=== PATIENT | male | born 2005 | race Caucasian/White ===

== ENCOUNTER 2024-05-08 19:04 | Emergency (ER) | payer OTHER ==
[2024-05-08] MEDS ORDERED: ACETAMINOPHEN 325 MG TABLET ONE (19:45)
[2024-05-08] MEDS ORDERED: NA CHLORIDE 0.9% 1,000 ML ONE (19:46)
[2024-05-08 20:18] LABS: Absolute Lymphocytes (CBC) 0.6 K/uL (0.7-4.9); Absolute Monocytes 0.9 K/uL (0.1-1.3); Absolute Neutrophil 7.6 K/uL (1.8-8.0); Basophils % 0.2 % (0-1.3); Eosinophils % 0.2 % (0-4.4); Hematocrit 44.1 % (39.6-49.0); Hemoglobin 15.4 g/dL (13.6-17.9); Lymphocytes % 6.9 % (15.3-44.8); MCH 29.9 pg (27.0-35.0); MCHC 34.8 g/dL (32.0-36.0); MCV 85.9 fL (80-100); MPV 7.2 fL (7.6-11.3); Monocytes % 9.4 % (3.3-12.3); Neutrophils % 83.3 % (41.7-73.7); Platelets 172 thou/uL (152-406); RBC Red Blood Cell Count 5.13 M/uL (4.33-5.43); Red Cell Distribution Width 13.6 % (12.1-15.2)
[2024-05-08 20:32] LABS: Specific Gravity 1.009 (1.005-1.030); Sqamous Epithelial None Seen /HPF (None Seen); Urine Bacteria None Seen /HPF (<20); Urine Bilirubin NEGATIVE (Negative); Urine Blood Negative (Negative); Urine Clarity Clear (Clear); Urine Color Colorless (Yellow); Urine Culture Reflex Order NOT NEEDED; Urine Glucose NEGATIVE (Negative); Urine Ketones NEGATIVE (Negative); Urine Microscopic Reflex YN ORDER UMIC; Urine Nitrite NEGATIVE (Negative); Urine Protein NEGATIVE (Negative); Urine RBC <5 /HPF (None Seen); Urine Urobilinogen Normal (Normal); Urine WBC <5 /HPF (<5)
--- NOTE | 2024-05-08 20:36 | RAD REPORT ---
EXAMINATION: TWO VIEW CHEST XR CLINICAL INDICATION: COUGH TECHNIQUE: 2 views of the chest was performed. COMPARISON: No prior exam. FINDINGS: The lungs are well inflated and clear. The heart is normal in size. No displaced fractures evident. IMPRESSION: No acute or significant abnormalities.
[2024-05-08 20:38] LABS: Albumin 4.4 g/dL (3.4-5.0); Albumin/Globulin Ratio 1.4 (1.1-1.8); Bilirubin Total 2.3 mg/dL (0.2-1.0); Globulin 3.1 g/dL (2.3-3.5); Protein, Total 7.5 g/dL (6.4-8.2)
[2024-05-08 20:45] LABS: SARS-CoV-2 Antigen CONTROL BLUE LINE VIS/BG OK; SARS-CoV-2 Antigen Rapid Res Negative (Negative)
--- NOTE | 2024-05-08 21:00 | EDPHYS ---
Physician Documentation [facility] Name: Torres Capone Age: 18 yrs Sex: Male : 2005 Arrival Date: 05/08/2024 Time: 19:04 Bed 14 Private MD: ED Physician Romulo Berumen HPI: 05/08 20:08 This 18 yrs old Male presents to ER via Ambulatory with complaints of arturo Allergic Reaction. 20:08 This 18 yrs old Male presents to ER via Ambulatory with complaints of Allergic Reaction.arturo 20:08 The patient presents with dizziness, redness of skin. Onset: The symptoms/episode arturo began/occurred just prior to arrival. Associated signs and symptoms: Pertinent positives: nausea. Possible causes: Rizatriptan. At home the patient or guardian has treated the symptoms with nothing. Severity of symptoms: At their worst the symptoms were moderate in the emergency department the symptoms have improved moderately. The patient has experienced a previous episode. Historical: - Allergies: 19:30 sumatriptan; cp4 19:30 rizatriptan; cp4 - Immunization history:: Adult Immunizations up to date. - Infectious Disease History:: Denies. - Social history:: Smoking status: Patient denies any tobacco usage or history of. - Family history:: not pertinent. ROS: 20:08 Constitutional: Negative for fever, chills, and weight loss, Eyes: Negative for injury, arturo pain, redness, and discharge, ENT: Negative for injury, pain, and discharge, Neck: Negative for injury, pain, and swelling, Respiratory: Negative for shortness of breath, cough, wheezing, and pleuritic chest pain, Abdomen/GI: Negative for abdominal pain, nausea, vomiting, diarrhea, and constipation, Back: Negative for injury and pain, : Negative for injury, bleeding, discharge, and swelling, MS/Extremity: Negative for injury and deformity, Neuro: Negative for headache, weakness, numbness, tingling, and seizure, Psych: Negative for depression, anxiety, suicide ideation, homicidal ideation, and hallucinations, Allergy/Immunology: Negative for hives, rash, and allergies, Endocrine: Negative for neck swelling, polydipsia, polyuria, polyphagia, and marked weight changes, 20:08 Cardiovascular: Positive for palpitations, 20:08 Skin: Positive for Exam: 20:08 Constitutional: This is a well developed, well nourished patient who is awake, alert, arturo and in no acute distress. Head/Face: Normocephalic, atraumatic. Eyes: Pupils equal round and reactive to light, extra-ocular motions intact. Lids and lashes normal. Conjunctiva and sclera are non-icteric and not injected. Cornea within normal limits. Periorbital areas with no swelling, redness, or edema. ENT: Nares patent. No nasal discharge, no septal abnormalities noted. Tympanic membranes are normal and external auditory canals are clear. Oropharynx with no redness, swelling, or masses, exudates, or evidence of obstruction, uvula midline. Mucous membranes moist. Neck: Trachea midline, no thyromegaly or masses palpated, and no cervical lymphadenopathy. Supple, full range of motion without nuchal rigidity, or vertebral point tenderness. No Meningismus. Chest/axilla: Normal chest wall appearance and motion. Nontender with no deformity. No lesions are appreciated. Cardiovascular: Regular rate and rhythm with a normal S1 and S2. No gallops, murmurs, or rubs. Normal PMI, no JVD. No pulse deficits. Respiratory: Lungs have equal breath sounds bilaterally, clear to auscultation and percussion. No rales, rhonchi or wheezes noted. No increased work of breathing, no retractions or nasal flaring. Abdomen/GI: Soft, non-tender, with normal bowel sounds. No distension or tympany. No guarding or rebound. No evidence of tenderness throughout. Back: No spinal tenderness. No costovertebral tenderness. Full range of motion. Male : Normal genitalia with no discharge or lesions. Skin: Warm, dry with normal turgor. Normal color with no rashes, no lesions, and no evidence of cellulitis. MS/ Extremity: Pulses equal, no cyanosis. Neurovascular intact. Full, normal range of motion. Neuro: Awake and alert, GCS 15, oriented to person, place, time, and situation. Cranial nerves II-XII grossly intact. Motor strength 5/5 in all extremities. Sensory grossly intact. Cerebellar exam normal. Normal gait. Psych: Awake, alert, with orientation to person, place and time. Behavior, mood, and affect are within normal limits. Vital Signs: 19:27 BP 138 / 74; Pulse 108; Resp 18; Temp 99.4; Pulse Ox 100% ; Weight 61.23 kg; Height 5 cp4 ft. 10 in. ; Pain 0/10; 19:37 BP 138 / 74; Pulse 113; Resp 20; Temp 98; Pulse Ox 100% ; kj2 20:22 BP 126 / 74; Pulse 100; Resp 18; Pulse Ox 100% on R/A; kj2 21:17 BP 112 / 60; Pulse 105; Resp 18; Temp 98; Pulse Ox 100% on R/A; kj2 19:27 Body Mass Index 19.37 (61.23 kg, 177.8 cm) cp4 19:27 Pain Scale: Adult cp4 MDM: 19:08 Patient medically screened. [facility] 20:11 Differential diagnosis: anaphylaxis, angioedema, Arrhythmias urticaria. Data reviewed: [facility] vital signs, nurses notes, lab test result(s), EKG, radiologic studies, plain films. Consideration of Admission/Observation Escalation of care including admission/observation considered. I considered the following discharge prescriptions or medication management in the emergency department Medications were administered in the Emergency Department. See MAR. Independent interpretation of the following test(s) in the Emergency Department EKG: See my EKG interpretation above. Test considered but Not performed: EKG: no ekg. Historians other than the Patient: pt well informed. Care significantly affected by the following chronic conditions: headaches. 05/08 19:35 Order name: CBC with Diff; Complete Time: 20:58 [facility] 05/08 19:35 Order name: Comprehensive Metabolic Panel; Complete Time: 20:58 [facility] 05/08 19:35 Order name: Urinalysis w/ reflexes; Complete Time: 20:58 [facility] 05/08 19:35 Order name: Flu; Complete Time: 20:58 [facility] 05/08 19:35 Order name: SARS RAPID; Complete Time: 20:58 [facility] 05/08 19:35 Order name: Strep; Complete Time: 20:58 [facility] 05/08 19:35 Order name: Blood Culture Adult (2) [facility] 05/08 19:35 Order name: Lactate w/ 2H reflex if indic.; Complete Time: 20:58 [facility] 05/08 20:43 Order name: Throat Culture EDMS 05/08 19:35 Order name: Chest Pa And Lat (2 Views) XRAY; Complete Time: 20:58 [facility] 05/08 20:59 Order name: Misc. Order: juice; Complete Time: 21:20 arturo Administered Medications: 20:20 Drug: Acetaminophen PO 650 mg PO once Route: PO; kj2 21:05 Follow up: Response: No adverse reaction; Pain is decreased kj2 20:21 Drug: NS 0.9% IV 1000 ml IV at 1 bolus Per protocol; to be given as a bolus over 60 kj2 minutes Route: IV; Rate: 1 bolus; Site: left antecubital; 21:19 Follow up: IV Status: Completed infusion; IV Intake: 1000ml kj2 21:19 Drug: Potassium PO Effervescent Tablet 50 mEq PO once; dissolve in 4 ounces of water or kj2 juice Route: PO; 21:19 Follow up: Response: No adverse reaction; Medication administered at discharge. kj2 Disposition Summary: 05/08/24 20:59 Discharge Ordered Notes: Location: Home arturo Problem: new arturo Symptoms: have improved arturo Condition: Stable arturo Diagnosis - Adverse effect of unspecified drugs, medicaments and biological substances - taken arturo properly - Hypokalemia arturo Followup: arturo - With: Private Physician - When: 2 - 3 days - Reason: Recheck today's complaints, Continuance of care, Re-evaluation by your physician Discharge Instructions: - Discharge Summary Sheet arturo - Potassium Content of Foods arturo - Drug Allergy arturo - Hypokalemia arturo Forms: - Medication Reconciliation Form arturo - Antibiotic Education arturo - Prescription Opioid Use arturo - Patient Portal Instructions arturo - Leadership Thank You Letter [facility] Prescriptions: - Benadryl 25 mg Oral Capsule - take 1 capsule ORAL route every 6 hours As needed; 30 tablet; Refills: 0, arturo Product Selection Permitted Signatures: Dispatcher [employer] EDRomulo Solis MD MD cha Potter, Christina cp4 Sarah Vasquez, EMRE RN kj2 Corrections: (The following items were deleted from the chart) 19:35 19:35 CBC+H.LAB.BRZ ordered. EDMS EDMS 19:35 19:35 COMPREHENSIVE METABOLIC PANEL+C.LAB.BRZ ordered. EDMS EDMS 19:35 19:35 Urinalysis+U.LAB.BRZ ordered. EDMS EDMS 19:35 19:35 Influenza Screen (A \T\ B)+BA.LAB.BRZ ordered. EDMS EDMS 19:35 19:35 SARS-COV-2 Antigen Rapid+I.LAB.BRZ ordered. EDMS EDMS 19:35 19:35 Group A Streptococcus Rapid Sc+BA.LAB.BRZ ordered. EDMS EDMS 19:35 19:35 BLOOD CULTURE*+BA.LAB.BRZ ordered. EDMS EDMS 19:35 19:35 LACTATE+C.LAB.BRZ ordered. EDMS EDMS 19:36 19:36 Chest Pa And Lat (2 Views)+RAD.RAD.BRZ ordered. EDMS EDMS
--- NOTE | 2024-05-08 21:00 | ER ---
Nurse's Notes [facility] Name: Torres Capone Age: 18 yrs Sex: Male : 2005 Arrival Date: 05/08/2024 Time: 19:04 Bed 14 Private MD: Diagnosis: Adverse effect of unspecified drugs, medicaments and biological substances-taken properly;Hypokalemia Presentation: 05/08 19:27 Chief complaint: Patient states: allergic reaction to rizatriptan 10 mg that he took 2 cp4 hours ago. States he is having shaking and fever. Coronavirus screen: Client denies travel out of the [place] in the last 14 days. At this time, the client does not indicate any symptoms associated with coronavirus-19. Ebola Screen: Patient negative for fever greater than or equal to 101.5 degrees Fahrenheit, and additional compatible Ebola Virus Disease symptoms Patient denies exposure to infectious person. Patient denies travel to an Ebola-affected area in the 21 days before illness onset. No symptoms or risks identified at this time. Onset: The symptoms/episode began/occurred gradually. Anaphylaxis evaluation, the patient reports or I have noted the following symptoms which indicate a significant risk of anaphylaxis: no signs or symptoms of anaphylaxis were noted no signs or symptoms of anaphylaxis were noted. Initial Sepsis Screen: Does the patient meet any 2 criteria? HR > 90 bpm. No. Patient's initial sepsis screen is negative. Does the patient have a suspected source of infection? No. Patient's initial sepsis screen is negative. Risk Assessment: Do you want to hurt yourself or someone else? Patient reports no desire to harm self or others. Onset of symptoms was May 08, 2024. 19:27 Method Of Arrival: Ambulatory cp4 19:27 Acuity: KYM 3 cp4 Triage Assessment: 19:30 General: Appears in no apparent distress. comfortable, Behavior is calm, cooperative, cp4 appropriate for age. Pain: Denies pain. Historical: - Allergies: 19:30 sumatriptan; cp4 19:30 rizatriptan; cp4 - Immunization history:: Adult Immunizations up to date. - Infectious Disease History:: Denies. - Social history:: Smoking status: Patient denies any tobacco usage or history of. - Family history:: not pertinent. Screenin:[facility] ED Fall Risk Assessment (Adult) History of falling in the last 3 months, kj2 including since admission No falls in past 3 months (0 pts) Confusion or Disorientation No (0 pts) Intoxicated or Sedated No (0 pts) Impaired Gait No (0 pts) Mobility Assist Device Used No (0 pt) Altered Elimination No (0 pt) Score/Fall Risk Level 0 - 2 = Low Risk Maintained a safe environment, Hourly rounding (assess needs \T\ fall precautionary measures) done. Abuse screen: Denies threats or abuse. Denies injuries from another. Abuse screen: Denies threats or abuse. Nutritional screening: No deficits noted. Tuberculosis screening: No symptoms or risk factors identified. Assessment: 19:36 General: Appears in no apparent distress. Behavior is calm, cooperative. Pain: Denies kj2 pain. Neuro: Level of Consciousness is awake, alert. Cardiovascular: Patient's skin is warm and dry. Respiratory: Airway is patent Respiratory effort is unlabored. GI: No signs and/or symptoms were reported involving the gastrointestinal system. : No signs and/or symptoms were reported regarding the genitourinary system. 20:22 Reassessment: Patient appears in no apparent distress at this time. Patient and/or kj2 family updated on plan of care and expected duration. Pain level reassessed. Patient is alert, oriented x 3, equal unlabored respirations, skin warm/dry/pink. 21:05 Reassessment: Patient appears in no apparent distress at this time. Patient and/or kj2 family updated on plan of care and expected duration. Pain level reassessed. Patient is alert, oriented x 3, equal unlabored respirations, skin warm/dry/pink. 21:18 Respiratory: Breath sounds are clear bilaterally. kj2 Vital Signs: 19:27 BP 138 / 74; Pulse 108; Resp 18; Temp 99.4; Pulse Ox 100% ; Weight 61.23 kg; Height 5 cp4 ft. 10 in. ; Pain 0/10; 19:37 BP 138 / 74; Pulse 113; Resp 20; Temp 98; Pulse Ox 100% ; kj2 20:22 BP 126 / 74; Pulse 100; Resp 18; Pulse Ox 100% on R/A; kj2 21:17 BP 112 / 60; Pulse 105; Resp 18; Temp 98; Pulse Ox 100% on R/A; kj2 19:27 Body Mass Index 19.37 (61.23 kg, 177.8 cm) cp4 19:27 Pain Scale: Adult cp4 ED Course: 19:07 Patient arrived in ED. arturo 19:08 Romulo Berumen MD is Attending Physician. [facility] 19:30 Triage completed. cp4 19:30 Arm band placed on right wrist. Patient placed in waiting room. cp4 19:33 Sarah Vasquez, RN is Primary Nurse. kj2 19:39 Patient has correct armband on for positive identification. Bed in low position. Call kj2 light in reach. Adult w/ patient. Provided Education on: call light. 19:40 No provider procedures requiring assistance completed. kj2 19:50 Inserted saline lock: 20 gauge in left antecubital area, using aseptic technique. Blood kj2 collected. Flushed with 10 mL NS. 20:21 Lactate w/ 2H reflex if indic. Sent. kj2 20:21 Blood Culture Adult (2) Sent. kj2 20:21 Strep Sent. kj2 20:21 SARS RAPID Sent. kj2 20:21 Flu Sent. kj2 20:21 Urinalysis w/ reflexes Sent. kj2 20:21 Comprehensive Metabolic Panel Sent. kj2 20:21 CBC with Diff Sent. kj2 20:29 Chest Pa And Lat (2 Views) XRAY In Process Unspecified. EDMS 21:18 IV discontinued, intact, bleeding controlled, No redness/swelling at site. Pressure kj2 dressing applied. Administered Medications: 20:20 Drug: Acetaminophen PO 650 mg PO once Route: PO; kj2 21:05 Follow up: Response: No adverse reaction; Pain is decreased kj2 20:21 Drug: NS 0.9% IV 1000 ml IV at 1 bolus Per protocol; to be given as a bolus over 60 kj2 minutes Route: IV; Rate: 1 bolus; Site: left antecubital; 21:19 Follow up: IV Status: Completed infusion; IV Intake: 1000ml kj2 21:19 Drug: Potassium PO Effervescent Tablet 50 mEq PO once; dissolve in 4 ounces of water or kj2 juice Route: PO; 21:19 Follow up: Response: No adverse reaction; Medication administered at discharge. kj2 Medication: 19:39 VIS not applicable for this client. kj2 Intake: 21:19 IV: 1000ml; Total: 1000ml. kj2 Outcome: 20:59 Discharge ordered by . arturo 21:18 Discharged to home ambulatory, with family, kj2 21:18 Condition: stable 21:18 Discharge instructions given to patient, Instructed on discharge instructions, follow up and referral plans. medication usage, Demonstrated understanding of instructions, follow-up care, medications, Prescriptions given X 1, 21:33 Patient left the ED. cp4 Signatures: Dispatcher [employer] EDRomulo Solis MD MD cha Potter, Christina cp4 Sarah Vasquez, RN RN kj2
[2024-05-08] MEDS ORDERED: POTASSIUM 25 MEQ EFFERV TAB ONE (21:11)
[2024-05-09 01:12] VITALS: O2SAT 100
[2024-05-09 01:13] VITALS: TEMP 98
[2024-05-09 01:17] VITALS: BP 112/60
== END 2024-05-08 21:33 | disposition home or self-care (01) ==
LOC: ER 19:04
DX: R42 Dizziness and giddiness (principal); T39.8X5A Adverse effect of other nonopioid analgesics and antipyretics, not elsewhere classified, initial encounter; E87.6 Hypokalemia; R00.2 Palpitations; Z11.52 Encounter for screening for COVID-19
CPT/HCPCS: 87040 ×2; 87070; 85025; 81001; 36415; 87081; 83605; 80053; 87804 ×2; 71046; 87811; J7030